=== PATIENT | female | born 1995 | race Caucasian/White ===

== ENCOUNTER 2018-10-11 20:18 | Emergency (ER) | payer OTHER ==
[~2018-10-11] VITALS: Ht 170.2 cm; Wt 61.2 kg
[2018-10-11 20:51] VITALS: BP 97/68
--- NOTE | 2018-10-11 20:54 | NUR ---
ER Nurse Note: Pt walked in c/o neck stiffness, headache, n/v, body chills since 10/10. Pt visited [place], [place] and got off plane 10/10. 09/23 body pain. Pt a&ox4, VSS, no signs of distress. All labs sent; awaiting results. BS 100, MD aware. Will continue to [facility].
--- NOTE | 2018-10-11 20:56 | Emergency Room Report ---
History of Present Illness General Chief Complaint: General Complaint Source: Patient Present Illness HPI 23-year-old female history of depression, anxiety presents with cough, congestion, subjective fever/chills subjective neck stiffness x1 day no aggravating or alleviating factors no nausea no vomiting no diarrhea no abdominal pain, patient presents for evaluation symptoms have been constant x1 day. Allergies: Coded Allergies: NITROFURANTOIN (Verified Allergy, Unknown, 10/11/18) hives PENICILLINS (Verified Allergy, Unknown, 10/11/18) hives Patient History Past Medical History: see triage record Last Menstrual Period: 09/2018 Now: No Reviewed Nursing Documentation: PMH: Agreed; PSxH: Agreed Nursing Documentation-PMH History Of Psychiatric Problem: No - arthritis Review of Systems All Other Systems: negative except mentioned in HPI Physical Exam Vital Signs Date Time Temp Pulse Resp B/P (MAP) Pulse Ox O2 Delivery O2 Flow Rate FiO2 10/11/18 20:24 98.2 53 16 97/68 (78) 99 Room Air Sp02 EP Interpretation: reviewed, normal General Appearance: well appearing, no apparent distress, alert Head: normocephalic, atraumatic Eyes: bilateral eye PERRL, bilateral eye EOMI ENT: uvula midline, moist mucus membranes, nasal congestion Neck: supple, thyroid normal, no meningismus, supple/symm/no masses, other - No neck stiffness Respiratory: lungs clear, no respiratory distress, no retraction, no accessory muscle use Cardiovascular #1: normal peripheral pulses, regular rate, rhythm, no edema, no gallop, no murmur Gastrointestinal: non tender, soft, no guarding, no rebound Musculoskeletal: normal inspection Neurologic: alert, oriented x3 Psychiatric: mood/affect normal Skin: no rash, warm/dry Medical Decision Making Diagnostic Impression: Primary Impression: Viral syndrome ER Course 23-year-old female presents most likely with a viral syndrome, prior to arrival she took NyQuil flu, patient is afebrile in the ED, not tachycardic, in no acute distress, no photophobia, patient is able to extend and flex her neck without any issues, patient does have congestion on exam, patient most likely with a viral syndrome. Counseled patient, and joint decision-making was made with the patient to only test for the flu, and she was counseled that if she worsens over the next 24 to 48 hours to return to the ED for reevaluation. Patient opted not to have blood work. Return precautions discussed follow-up with PCP Laboratory Tests Test 10/11/18 20:40 Urine HCG, Qualitative Negative (NEGATIVE) Microbiology Date/Time Source Procedure Growth Status 10/11/18 20:40 Nasal Nares - Final Complete 10/11/18 20:40 Nasal Nares - Final Complete Last Vital Signs Date Time Temp Pulse Resp B/P (MAP) Pulse Ox O2 Delivery O2 Flow Rate FiO2 10/11/18 20:24 98.2 53 16 97/68 (78) 99 Room Air Disposition: HOME, SELF-CARE Condition: Stable Referrals: [facility] Patient Instructions: Upper Respiratory Infection, Adult, [id number] Additional Instructions: The patient was provided with discharge instructions, notified to follow-up with a primary care doctor and or specialist in the next 24-48 hours, and to return to the ED if they have worsening of their symptoms. Please note that this report is being documented using [employer] (formerly [employer]) technology. This can lead to erroneous entry secondary to incorrect interpretation by the dictating instrument. Tremaine Chatman MD Oct 11, 2018 20:56
[2018-10-11 21:09] VITALS: BP 109/63
[2018-10-11 21:30] VITALS: BP 109/63
--- NOTE | 2018-10-11 21:30 | NUR ---
ER Nurse Note: Pt seen, treated, medically cleared for discharge by ERMD. Discharge instuctions given with repeat verbalization by pt. Emphasized to follow up with primay care provider. All orders completed per ERMD orders. Pt a&ox4, VSS, no signs of distress. ID band removed. All questions answered per pt's questions. Pt left with all belongings, left with own transportation.
== END 2018-10-11 21:30 | disposition home or self-care (01) ==
LOC: EMR 20:53
DX: B34.9 Viral infection, unspecified (principal); M19.90 Unspecified osteoarthritis, unspecified site; Z88.0 Allergy status to penicillin; F32.9 Major depressive disorder, single episode, unspecified; F41.9 Anxiety disorder, unspecified; Z88.8 Allergy status to other drugs, medicaments and biological substances
CPT/HCPCS: 81025; 86710; 99282